=== PATIENT | female | born 1985 | race Caucasian/White ===

== ENCOUNTER → 2023-01-13 | Outpatient (REF) | payer BC ==
[~2023-01-13] MED LIST: IOPAMIDOL 370 MG/ML 100 ML INFUS..BTL INJ ONE
== END ==
LOC: DX 10:13
PROVIDERS: ATTEND Obstetrics & Gynecology
DX: N97.9 Female infertility, unspecified (principal)
CPT/HCPCS: 74740; 81025; Q9967